=== PATIENT | female | born 1990 | race Two or more races ===

== ENCOUNTER 2024-10-21 20:51 | Emergency (ER) | payer MEDICAID, OTHER ==
[~2024-10-21] VITALS: Ht 172.7 cm; Wt 158.8 kg
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
--- NOTE | 2024-10-22 00:13 | DVH ---
EXAM: XY L KNEE 3V XRAY HISTORY: left knee pain COMPARISON: None TECHNIQUE: 3 views of the left knee were performed. FINDINGS: No acute fracture is identified about the left knee. No significant joint space narrowing. No evide nce of significant joint effusion. IMPRESSION: Unremarkable radiographs of the left knee.
[2024-10-22] MEDS: HYDROcodone-ACET 5/325MG TAB PO ONE (00:58)
[2024-10-22 00:59] VITALS: BP 124/64; PULSE 82; RESP 21; TEMP 98.7; O2SAT 97
== END 2024-10-22 03:23 | disposition home or self-care (01) ==
LOC: ER 21:02
DX: S83.8X2A Sprain of other specified parts of left knee, initial encounter (principal); W18.39XA Other fall on same level, initial encounter; Y93.89 Activity, other specified; Y92.89 Other specified places as the place of occurrence of the external cause; Y99.8 Other external cause status
CPT/HCPCS: 73562